=== PATIENT | female | born 1985 | race African-American/Black ===

== ENCOUNTER 2018-10-24 10:24 | Emergency (ER) | payer SELFPAY ==
[2018-10-24 10:28] VITALS: BP 136/91
[2018-10-24] MEDS ORDERED: OXYCODONE-ACETAMINOPHEN 5-325 MG TABLET PO ONE (10:43)
[2018-10-24] MEDS ORDERED: CYCLOBENZAPRINE HCL 10 MG TABLET PO ONE (10:43)
--- NOTE | 2018-10-24 10:45 | ER Document Report ---
HPI - HPI Patient complains to provider of: low back pain Time Seen by Provider: 10/24/18 10:35 Onset: Other - 5 days Onset/Duration: Waxing and waning Quality of pain: Sharp Pain Level: 4 Context: Patient reports a 5-day history of lower back pain that resolves at nighttime and then gets worse in the morning. Patient denies any injury, fever or urinary symptoms. Patient denies any radiculopathy or paresthesia. Associated Symptoms: Other - Low back pain. denies: Fever Exacerbated by: Movement Relieved by: Denies Similar symptoms previously: No Recently seen / treated by doctor: No - ROS ROS below otherwise negative: Yes Systems Reviewed and Negative: Yes All other systems reviewed and negative - CONSTITUTIONAL Constitutional: DENIES: Fever, Chills - NEURO Neurology: DENIES: Weakness - URINARY Urinary: DENIES: Dysuria, Urgency, Frequency - REPRODUCTIVE Reproductive: DENIES: : - MUSCULOSKELETAL Musculoskeletal: REPORTS: Back Pain. DENIES: Extremity pain - DERM Skin Color: Normal Skin Problems: None Past Medical History - General Information source: Patient - Social History Smoking Status: Never Smoker Chew tobacco use (# tins/day): No Frequency of alcohol use: None Drug Abuse: None Occupation: none Family History: Reviewed & Not Pertinent Patient has suicidal ideation: No Patient has homicidal ideation: No - Medical History Medical History: Negative Renal/ Medical History: Denies: Hx Peritoneal Dialysis Past Surgical History: Reports: Hx Orthopedic Surgery - ACL reconstruction, Hx Tubal Ligation - Immunizations Hx Diphtheria, Pertussis, Tetanus Vaccination: Yes Vertical Provider Document - CONSTITUTIONAL Agree With Documented VS: Yes Exam Limitations: No Limitations General Appearance: WD/WN, No Apparent Distress Notes: PHYSICAL EXAMINATION: GENERAL: Well-appearing, well-nourished and in no acute distress. HEAD: Atraumatic, normocephalic. EYES: sclera clear, anicteric, conjunctiva are normal. ENT: nares patent, Moist mucous membranes. NECK: Normal range of motion, supple no lymphadenopathy LUNGS: respirations unlabored HEART: Regular rate and rhythm without murmurs EXTREMITIES: Normal range of motion, no pitting or edema. No cyanosis. Gait normal, pt ambulates without difficulty BACK: Lower lumbar midline tenderness, no deformities or step-offs. No CVA tenderness. NEUROLOGICAL: Cranial nerves grossly intact. Normal speech, normal gait. No saddle anesthesia. PSYCH: Normal mood, normal affect. SKIN: Warm, Dry, normal turgor, no rashes or lesions noted. - INFECTION CONTROL TRAVEL OUTSIDE OF THE [place] IN LAST 30 DAYS: No Course - Re-evaluation Re-evalutation: 10/24/18 10:44 The patient presents with low back pain without signs of spinal cord compression, cauda equina syndrome, infection, aneurysm, or other serious etiology. The patient is neurologically intact. Given the extremely risk of these diagnoses further testing and evaluation for these possibilities does not appear to be indicated at this time. Patient has been instructed to return if the symptoms worsen or change in any way. - Vital Signs Vital signs: Temp Pulse Resp BP Pulse Ox 98.6 F 93 16 136/91 H 98 10/24/18 10:28 10/24/18 10:28 10/24/18 10:28 10/24/18 10:28 10/24/18 10:28 Discharge - Discharge Clinical Impression: Low back pain Qualifiers: Chronicity: unspecified Back pain laterality: midline Sciatica presence: without sciatica Qualified Code(s): M54.5 - Low back pain Condition: Stable Disposition: HOME, SELF-CARE Instructions: Family Physicians / Practices, Ice Packs ([facility]), Low Back Pain ([facility]), Oral Narcotic Medication ([facility]) Additional Instructions: Return immediately for any new or worsening symptoms Followup with your primary care provider, call tomorrow to make a followup appointment Prescriptions: Naproxen [Naprosyn 250 Nmg Tablet] 1 tab PO BID #14 tablet Oxycodone HCl/Acetaminophen [Percocet 5-325 mg Tablet] 1 tab PO ASDIR PRN #15 tablet PRN Reason: Referrals: [facility] [Provider Group] - Follow up as needed [facility] [Provider Group] - Follow up as needed
== END 2018-10-24 10:52 | disposition home or self-care (01) ==
LOC: ER 10:24
DX: M54.5 Low back pain (principal)
CPT/HCPCS: 99283

== ENCOUNTER 2019-08-06 03:48 | Emergency (ER) | payer MEDICAID ==
[2019-08-06 04:38] VITALS: BP 147/95
--- NOTE | 2019-08-06 07:06 | ER Document Report ---
ED ENT - General Chief Complaint: Sore Throat Stated Complaint: THROAT SWOLLEN/PAIN Time Seen by Provider: 08/06/19 07:04 Primary Care Provider: RADHA BELTRÁN MD [ACTIVE STAFF] - Follow up in 3-5 days Notes: 34-year-old female presents with sore throat that started yesterday. Patient has had a intermittent cough for "few days". Patient states her friend and friend's family were all positive for strep and she was at a libertarian with them a few days ago. Patient denies any ear pain, fever, inability to swallow, abdominal pain, nausea/vomiting/diarrhea. TRAVEL OUTSIDE OF THE [place] IN LAST 30 DAYS: No - Related Data Allergies/Adverse Reactions: No Known Allergies Allergy (Verified 10/24/18 10:25) Past Medical History - Social History Smoking Status: Never Smoker Chew tobacco use (# tins/day): No Frequency of alcohol use: None Drug Abuse: None Family History: Reviewed & Not Pertinent Patient has suicidal ideation: No Patient has homicidal ideation: No Renal/ Medical History: Denies: Hx Peritoneal Dialysis Past Surgical History: Reports: Hx Orthopedic Surgery - ACL reconstruction, Hx Tubal Ligation - Immunizations Hx Diphtheria, Pertussis, Tetanus Vaccination: Yes Review of Systems - Review of Systems Notes: Constitutional: Negative for fever. HENT: Positive for sore throat. Eyes: Negative for visual changes. Cardiovascular: Negative for chest pain. Respiratory: Negative for shortness of breath. Gastrointestinal: Negative for abdominal pain, vomiting or diarrhea. Genitourinary: Negative for dysuria. Musculoskeletal: Negative for back pain. Skin: Negative for rash. Neurological: Negative for headaches, weakness or numbness. 10 point ROS negative except as marked above and in HPI. Physical Exam - Vital signs Vitals: Temp Pulse Resp BP Pulse Ox 98.1 F 87 20 147/95 H 99 08/06/19 04:36 08/06/19 04:36 08/06/19 04:36 08/06/19 04:36 08/06/19 04:36 - Notes Notes: GENERAL: Well-appearing, well-nourished and in no acute distress. HEAD: Atraumatic, normocephalic. ENT: Nares patent, pharynx is erythematous without exudates. No muffled voice. No trismus. Uvula midline without edema. 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 Moist mucous membranes. NECK: Normal range of motion, supple without lymphadenopathy or JVD. LUNGS: Breath sounds clear to auscultation bilaterally and equal. No wheezes rales or rhonchi. HEART: Regular rate and rhythm without murmurs, rubs or gallops. ABDOMEN: Soft, nontender. No guarding, no rebound. No masses appreciated. EXTREMITIES: Normal range of motion, no pitting or edema. No clubbing or cyanosis. NEUROLOGICAL: Cranial nerves II through XII grossly intact. Normal speech, normal gait. PSYCH: Normal mood, normal affect. SKIN: Warm, Dry, normal turgor, no rashes or lesions noted. Course - Re-evaluation Re-evalutation: 08/06/19 34-year-old nontoxic, well-appearing female presents with sore throat since yesterday. Patient admits sick contacts with positive strep. Pharynx is erythematous without exudates. Uvula is midline without edema. No trismus. No muffled voice. 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 Abdomen is soft nontender. Rapid strep is positive. Patient offered Bicillin shot however declined and elected to take oral antibiotics. Penicillin VK prescription given. Strict return precautions given. Patient given follow-up with PCP. All questions/concerns addressed prior to discharge. - Vital Signs Vital signs: Temp Pulse Resp BP Pulse Ox 98.1 F 87 20 147/95 H 99 08/06/19 04:53 08/06/19 04:36 08/06/19 04:53 08/06/19 04:36 08/06/19 04:53 Discharge - Discharge Clinical Impression: Strep throat Condition: Stable Disposition: HOME, SELF-CARE Instructions: Penicillin V K ([facility]), Strep Throat ([facility]) Additional Instructions: Your test today was positive for strep. Please take penicillin VK as prescribed and finish all doses unless we call you to change it based off your throat culture. For sore throat may take 1 spoonful of honey, gargle salt water tea, Chloraseptic spray [id number]. Please follow-up with your primary care doctor in 3 to 5 days. Return to ER for any worsening symptoms, including fever, inability to open mouth, worsening pain to throat, muffled voice, abdominal pain, vomiting, or any other symptoms that are concerning to you. Prescriptions: Penicillin V Potassium [Penicillin Vk 500 mg Tablet] 500 mg PO BID #20 tablet Forms: Return to Work Referrals: RADHA BELTRÁN MD [ACTIVE STAFF] - Follow up in 3-5 days
== END 2019-08-06 07:31 | disposition home or self-care (01) ==
LOC: ER 03:48
DX: J02.0 Streptococcal pharyngitis (principal); R05 Cough
CPT/HCPCS: 87880; 99283

== ENCOUNTER 2020-03-08 21:53 | Emergency (ER) | payer MEDICAID ==
[2020-03-08] MEDS ORDERED: ASPIRIN 81 MG TABLET, CHEWABLE PO ONE (22:40)
--- NOTE | 2020-03-08 22:41 | ER Document Report ---
ED Medical Screen (RME) - General Chief Complaint: Chest Pain Stated Complaint: CHEST PAIN Time Seen by Provider: 03/08/20 22:36 Mode of Arrival: Wheelchair Information source: Patient Notes: Patient presents complaining of left-sided chest pain that started around 7 PM. Patient states pain is worse with movement and deep inspiration. Patient denies any nausea vomiting or shortness of breath. Patient denies any cough. Patient denies any lightheadedness. Patient denies any significant underlying medical problems. I have greeted and performed a rapid initial assessment of this patient. A comprehensive ED assessment and evaluation of the patient, analysis of test results and completion of the medical decision making process will be conducted by additional ED providers. TRAVEL OUTSIDE OF THE [place] IN LAST 30 DAYS: No - Related Data Allergies/Adverse Reactions: No Known Allergies Allergy (Verified 10/24/18 10:25) Past Medical History Renal/ Medical History: Denies: Hx Peritoneal Dialysis Past Surgical History: Reports: Hx Orthopedic Surgery - ACL reconstruction, Hx Tubal Ligation - Immunizations Hx Diphtheria, Pertussis, Tetanus Vaccination: Yes Physical Exam - Vital signs Vitals: Temp Pulse Resp BP Pulse Ox 98.8 F 79 20 151/96 H 100 03/08/20 22:04 03/08/20 22:04 03/08/20 22:04 03/08/20 22:04 03/08/20 22:04 - Respiratory Respiratory status: No respiratory distress Chest status: Tender, Pain with deep breathing Chest palpation: Normal - Cardiovascular Rhythm: Regular Heart sounds: S1 appreciated, S2 appreciated Course - Vital Signs Vital signs: Temp Pulse Resp BP Pulse Ox 98.8 F 79 20 151/96 H 100 03/08/20 22:04 03/08/20 22:04 03/08/20 22:04 03/08/20 22:04 03/08/20 22:04
--- NOTE | 2020-03-08 23:30 | RADIOLOGY REPORT (SQ) ---
EXAM DESCRIPTION: XR CHEST 2 VIEWS COMPLETED DATE/TME: 03/08/2020 22:40 CLINICAL INDICATION: 35-year-old female with chest pain. TECHNIQUE: Two-view, PA and lateral projections of the chest were obtained. COMPARISON: None. FINDINGS: Unremarkable cardiac and mediastinal silhouette. Heart size is normal. Low lung volumes grossly clear without focal opacity, pneumothorax or pleural effusions. The visualized bones are within normal limits. IMPRESSION: No acute cardiopulmonary abnormalities.
[2020-03-09] MEDS ORDERED: ASPIRIN 81 MG TABLET, CHEWABLE ONE (01:20)
[2020-03-09 01:38] LABS: ABSOLUTE EOSINOPHILS # (AUTO) 0.1 10^3/uL (0.0-0.6); ABSOLUTE MONOCYTES (AUTO) 0.6 10^3/uL (0.1-1.4); ABSOLUTE NEUT (AUTO) 4.2 10^3/uL (1.7-8.2); BASOPHILS % (AUTO) 0.6 % (0-2); EOSINOPHILS % (AUTO) 1.8 % (0-6); HEMATOCRIT 37.4 % (36.0-47.0); HEMOGLOBIN 12.3 g/dL (12.0-15.5); LYMPHOCYTES % (AUTO) 28.8 % (13-45); MEAN CORPUSCULAR HEMOGLOBIN 28.8 pg (27.0-33.4); MEAN CORPUSCULAR VOLUME 87 fl (80-97); PLATELET COUNT 276 10^3/uL (150-450); RED BLOOD COUNT 4.28 10^6/uL (3.72-5.28); RED CELL DISTRIBUTION WIDTH 12.5 % (11.5-14.0); SEGMENTED NEUTROPHILS % (AUTO) 59.8 % (42-78); TOTAL CELLS COUNTED % (AUTO) 100 %; WHITE BLOOD COUNT 7.1 10^3/uL (4.0-10.5)
[2020-03-09 01:51] LABS: ALKALINE PHOSPHATASE 83 U/L (38-126); ANION GAP 6 (5-19); ASPARTATE AMINO TRANSFERASE 25 U/L (14-36); BILIRUBIN,TOTAL 0.5 mg/dL (0.2-1.3); BLOOD UREA NITROGEN 19 mg/dL (7-20); CALCIUM 9.2 mg/dL (8.4-10.2); CARBON DIOXIDE 26 mmol/L (22-30); CHLORIDE 106 mmol/L (98-107); GLUCOSE 99 mg/dL (75-110); TOTAL PROTEIN 7.2 g/dL (6.3-8.2)
[2020-03-09 02:02] LABS: NT PRO BNP 25 pg/mL (<125)
[2020-03-09 02:04] LABS: TROPONIN I < 0.012 ng/mL
[2020-03-09] MEDS ORDERED: ACETAMINOPHEN 325 MG TABLET PO ONE (03:31)
[2020-03-09] MEDS ORDERED: KETOROLAC TROMETHAMINE INJ/PF 30 MG/1 ML SDV IM ONE (05:49)
[2020-03-09] MEDS ORDERED: LIDOCAINE 2% VISCOUS SOLN 15 ML UDCUP PO ONE (05:53)
[2020-03-09] MEDS ORDERED: MAG HYDROX/AL HYDROX/SIMETH SUSP 30 ML UDCUP PO ONE (05:53)
[2020-03-09] MEDS ORDERED: METOCLOPRAMIDE HCL ORAL SOLN 10 MG/10 ML UDCUP PO ONE (05:53)
--- NOTE | 2020-03-09 06:28 | ER Document Report ---
ED Cardiac - General Chief Complaint: Chest Pain Stated Complaint: CHEST PAIN Time Seen by Provider: 03/08/20 22:36 Mode of Arrival: Wheelchair Notes: 35 y/o female with chest pain starting at 6pm yesterday after work. States that the pain is substernal. Reports that her left arm is very heavy. She denies any fever, chills, shortness of breath. Patient works in the [employer] she is constantly lifting and moving heavy boxes. Her chest is tender to palpation. She states that she had an episode of acid reflux earlier in the day. Denies any numbness and tingling. She denies any past cardiac medical history. Denies history of diabetes TRAVEL OUTSIDE OF THE [place] IN LAST 30 DAYS: No - Related Data Allergies/Adverse Reactions: No Known Allergies Allergy (Verified 10/24/18 10:25) Past Medical History - General Information source: Patient - Social History Smoking Status: Never Smoker Family History: Reviewed & Not Pertinent Patient has homicidal ideation: No Renal/ Medical History: Denies: Hx Peritoneal Dialysis Past Surgical History: Reports: Hx Orthopedic Surgery - ACL reconstruction, Hx Tubal Ligation - Immunizations Hx Diphtheria, Pertussis, Tetanus Vaccination: Yes Review of Systems - Review of Systems Constitutional: No symptoms reported EENT: No symptoms reported Cardiovascular: See HPI Respiratory: No symptoms reported Gastrointestinal: No symptoms reported Genitourinary: No symptoms reported Female Genitourinary: No symptoms reported Musculoskeletal: No symptoms reported Skin: No symptoms reported Hematologic/Lymphatic: No symptoms reported Neurological/Psychological: See HPI Physical Exam - Vital signs Vitals: Pulse Ox 99 03/08/20 21:53 Interpretation: Hypertensive - Notes Notes: Adult General: GENERAL: Alert, interacts well. No acute distress HEAD: Normocephalic, atraumatic EYES: Pupils equal, round and reactive to light. Extraocular movements intact. ENT: Airway patent. Nares patent. NECK: Full range of motion. Supple. Trachea midline. No lymphadenopathy. LUNGS: Clear to auscultation bilaterally, no wheezes, rales, or rhonchi. No respiratory distress. Nontender chest wall. HEART: Regular rate and rhythm. No murmurs, rubs or gallops. CHEST: TTP just left to the mid sternum ABDOMEN: Soft, nontender. Nondistended. (-) Interior sign. Bowel sounds present in all 4 quadrants. No rebound, guarding or masses. GENITOURINARY: Deferred EXTREMITIES: Moves all 4 extremities spontaneously. No edema, normal radial and dorsal pedis pulses bilaterally. No cyanosis. BACK: Moves all extremities with full range of motion. NEUROLOGICAL: Alert and oriented x3. Normal speech. Cranial nerves II through XII grossly intact. Strength 5/ 5 in all extremities. PSYCH: Normal affect, normal mood. SKIN: Warm, dry, normal turgor. No rashes or lesions noted. Course - Re-evaluation Re-evalutation: 03/09/20 06:28 I suspect patient's symptoms are related to costochondritis as her anterior chest wall is tender to palpation. She has had 2 negative troponins and her ekg showed no st segment elevatations or depressions. I provided Toradol IM and a GI cocktail which mildly improved her symptoms. As she continued to have chest pain I discussed the case with Dr. calzada. He recommends calling the on-call pickup driver Dr. Herrera. I discussed patient's case with Dr. Herrera who also is in agreeance that this is likely costochondritis based on the ekg and the negative troponins. Dr. Herrera is agreeable to seeing the patient in the clinic on Thursday morning. I discussed the findings with the patient to include her EKG and troponin results. Patient is agreeable to seeing Dr. Herrera as soon as possible. I discussed treatment options with the patient for costochondritis to include Tylenol and ibuprofen use. Commend that she follows up with her primary care provider. Discussed with patient that she may return to the emergency department if she has worsening symptoms or development of new symptoms. Patient is agreeable to plan. All questions answered - Vital Signs Vital signs: Temp Pulse Resp BP Pulse Ox 98.6 F 89 16 143/91 H 100 03/09/20 06:53 03/09/20 06:53 03/09/20 06:53 03/09/20 06:53 03/09/20 06:53 - Laboratory Result Diagrams: 03/09/20 01:15 03/09/20 01:15 - EKG Interpretation by Me Additional EKG results interpreted by me: 03/10/20 08:25 EKG is sinus rhythm with no ST segment elevations or depressions. Discharge - Discharge Clinical Impression: Chest pain Qualifiers: Chest pain type: other chest pain Qualified Code(s): R07.89 - Other chest pain Condition: Stable Disposition: HOME, SELF-CARE Instructions: Chest Wall Pain ([facility]) Additional Instructions: Your ekg shows no acute findings and your troponins are negative. You also have reproducible chest pain which is likely due to costochrondritis. Please follow up with cardiology. I have discussed your case with Dr. Herrera who is agreeable to seeing you in the clinic and states his office will call her for an appointment. Please return to the emergency department if you have worsening symptoms or development of new symptoms. You may take ibuprofen to help allevi ate your pain. Forms: Return to Work
--- NOTE | 2020-03-09 06:38 | EKG REPORT ---
SEVERITY:- BORDERLINE ECG - SINUS RHYTHM BORDERLINE T ABNORMALITIES, ANTERIOR LEADS : Confirmed by: Randy Herrera MD 09-Mar-2020 06:37:36
--- NOTE | 2020-03-09 06:38 | EKG REPORT ---
SEVERITY:- ABNORMAL ECG - SINUS RHYTHM VENTRICULAR BIGEMINY BORDERLINE T WAVE ABNORMALITIES : Confirmed by: Randy Herrera MD 09-Mar-2020 06:37:54
[2020-03-09 06:56] VITALS: BP 143/91
== END 2020-03-09 06:53 | disposition home or self-care (01) ==
LOC: ER 21:53
DX: R07.2 Precordial pain (principal)
CPT/HCPCS: 93005 ×2; 99285; 96372; 36415; 83690; 83735; 84703; 85025; 80053; 84484; 83880; 71046; 93010 ×2; J3490 ×4; J1885